=== PATIENT | male | born 1995 | race African-American/Black ===

== ENCOUNTER 2017-04-14 15:21 | Inpatient (IN) ==
--- NOTE | 2017-04-14 16:25 | Emergency Department Note ---
Disposition Clinical Impression: Suicide ideation Depression Qualifiers: Depression Type: major depressive disorder Major depression recurrence: single episode Active/Remission status: currently active Major depression episode severity: unspecified Qualified Code(s): F32.9 - Major depressive disorder, single episode, unspecified Disposition: Admitted As Inpatient Condition: Serious Referrals: Zara Haro MD [Partnered Physician] - Forms: ED Satisfaction Letter Time of Disposition: 19:27 Psych HPI - General Chief Complaint: ED Psychiatric Symptoms Stated Complaint: Anxiety,Depression Time Seen by Provider: 04/14/17 15:56 Source: patient, family Nursing Notes Reviewed: Yes Vital Signs Reviewed: Yes - History of Present Illness HPI Narrative: 21-year-old male complains of symptoms of depression. Patient has insomnia, anorexia, racing thoughts, thoughts of suicide. Patient recently had a breakup with girlfriend since then patient has been feeling more tired withdrawn. Patient states he started drinking alcohol and smoking marijuana every day. Patient states that his family does understand was going on in his life and this makes things difficult. Patient states he has been trying to drown himself in his music. Patient states nothing is helping. Patient does not have a plan for suicide but the thoughts other almost daily. - Related Data Previous Rx's Medication Instructions Recorded Naproxen [Naprosyn] 500 mg PO BID #14 tablet 07/31/16 Allergies Allergy/AdvReac Type Severity Reaction Status Date / Time No Known Allergies Allergy Verified 07/31/16 21:15 All systems ED: reviewed and negative except as stated. Review of Systems: As Per HPI Constitutional: Denies: fever, weakness Eyes: Denies: vision change ENT ED: Denies: congestion Cardiovascular: Denies: chest pain Respiratory: Denies: cough Gastrointestinal: Reports: abdominal pain, constipation Musculoskeletal: Denies: back pain Neurological: Denies: headache Past Medical History - Past Medical History Attestation: Yes The following information was validated with the patient. Source: patient, obtained from family, nursing notes reviewed Medical history: Reports: no medical history Psychiatric history: Reports: ADHD - Social History Smoking Status: Current every day smoker Alcohol use: Reports: occasionally Drug use: Reports: marijuana Physical Exam Vital Signs Temperature 99.2 F 04/14/17 15:43 Pulse Rate 105 04/14/17 15:43 Respiratory Rate 16 04/14/17 15:43 Blood Pressure 137/80 04/14/17 15:43 O2 Sat by Pulse Oximetry 97 04/14/17 15:43 Temperature 99.3 F 04/14/17 15:57 Pulse Rate 95 04/14/17 15:57 Respiratory Rate 20 04/14/17 15:57 Blood Pressure 152/92 04/14/17 15:57 O2 Sat by Pulse Oximetry 98 04/14/17 15:57 Oxygen Delivery Oxygen Delivery Room Air 21-year-old male who is alert and oriented 3 and in no acute distress. Patient became very emotional while describing his problems. Patient is nontoxic appearing. Patient has normal vital signs with exception of his pulse rate which is tachycardiac at 105. Rest the patient vital signs are normal. Patient afebrile. - General Limitations: no limitations General appearance: alert, in no apparent distress - Head Head exam: atraumatic, normocephalic, normal inspection - Eye Eye exam: Present: normal appearance, PERRL, EOMI - ENT ENT exam: normal exam, normal oropharynx, mucous membranes moist - Neck Neck exam: Present: normal inspection, full ROM, trachea midline - Chest Chest inspection: Present: normal inspection, symmetric chest wall rise - Respiratory Respiratory exam: Present: normal lung sounds bilaterally - Cardiovascular Cardiovascular exam: Present: normal rhythm, tachycardia, normal heart sounds - Abdominal Exam Abdominal exam: Present: soft, tenderness, normal bowel sounds. Absent: distention, guarding, rebound, rigidity Abdominal tenderness: Present: LLQ - Extremities Exam Extremities exam: Present: normal inspection, full ROM. Absent: tenderness, pedal edema - Back Exam Back exam: Present: normal inspection, full ROM. Absent: tenderness, CVA tenderness (R), CVA tenderness (L) - Neurological Exam Neurological exam: Present: alert, oriented X3 - Skin Skin exam: Present: warm, dry, intact, normal color Course Vital Signs Temperature 99.2 F 04/14/17 15:43 Pulse Rate 105 04/14/17 15:43 Respiratory Rate 16 04/14/17 15:43 Blood Pressure 137/80 04/14/17 15:43 O2 Sat by Pulse Oximetry 97 04/14/17 15:43 Temperature 98.6 F 04/14/17 17:57 Pulse Rate 73 04/14/17 17:57 Respiratory Rate 23 04/14/17 17:57 Blood Pressure 153/99 04/14/17 17:57 O2 Sat by Pulse Oximetry 97 04/14/17 17:57 Oxygen Delivery Oxygen Delivery Room Air Psych - MDM Narrative Medical decision making narrative: Depression, suicide ideation without a plan. Patient's father called and stated that he found out that his son the patient has been abusing benzodiazepines with his nephew over the past 3 months or so. He states that he stopped abruptly and he thinks that this may be impacting patient's activity. The patient has agreed to workup for his suicide ideation and depression. Patient will be evaluated by 1A once medical clearance is complete. Dr. Dunaway of psychiatry as except the patient for inpatient therapy at 1917 hrs. - Medical Records Medical records reviewed: Yes I reviewed the patient's medical records. Short CBC 04/14/17 Range/Units 16:40 WBC 10.5 (4.3-11.1) K/mcL Hgb 14.2 (12.9-16.9) g/dL Hct 40.5 (37.5-50.1) % Plt Count 214 (140-400) K/mcL Neutrophils # 7.4 (1.6-8.9) K/mcL BMP 04/14/17 Range/Units 16:40 Sodium 137 (136-145) mEq/L Potassium 3.4 L (3.5-5.1) mEq/L Chloride 106 (98-107) mEq/L Carbon Dioxide 25 (23-29) mEq/L BUN 13 (6-20) mg/dL Creatinine 1.07 (0.70-1.30) mg/dL Glucose 100 (70-105) mg/dL Calcium 9.4 (8.6-10.3) mg/dL Liver Function 04/14/17 Range/Units 16:40 Total Bilirubin 0.7 (0.3-1.0) mg/dL Direct Bilirubin 0.1 (0.0-0.2) mg/dL AST 29 (13-39) Units/L ALT 17 (7-52) Units/L Alkaline Phosphatase 37 (34-104) Units/L Albumin 4.6 (3.5-5.7) g/dL Urine 04/14/17 Range/Units 16:25 Urine Color Yellow (Yellow) Urine Clarity Clear (Clear) Urine pH 6.5 (5.0-8.0) pH Units Ur Specific [place] 1.012 (1.010-1.025) Urine Protein Negative (Neg-Trace) mg/dL Urine Glucose (UA) Normal (Normal) mg/dL - Lab Data Lab results reviewed: Yes I reviewed the patient's lab results. Lab results narrative: Short CBC 04/14/17 Range/Units 16:40 WBC 10.5 (4.3-11.1) K/mcL Hgb 14.2 (12.9-16.9) g/dL Hct 40.5 (37.5-50.1) % Plt Count 214 (140-400) K/mcL Neutrophils # 7.4 (1.6-8.9) K/mcL BMP 04/14/17 Range/Units 16:40 Sodium 137 (136-145) mEq/L Potassium 3.4 L (3.5-5.1) mEq/L Chloride 106 (98-107) mEq/L Carbon Dioxide 25 (23-29) mEq/L BUN 13 (6-20) mg/dL Creatinine 1.07 (0.70-1.30) mg/dL Glucose 100 (70-105) mg/dL Calcium 9.4 (8.6-10.3) mg/dL Liver Function 04/14/17 Range/Units 16:40 Total Bilirubin 0.7 (0.3-1.0) mg/dL Direct Bilirubin 0.1 (0.0-0.2) mg/dL AST 29 (13-39) Units/L ALT 17 (7-52) Units/L Alkaline Phosphatase 37 (34-104) Units/L Albumin 4.6 (3.5-5.7) g/dL Urine 04/14/17 Range/Units 16:25 Urine Color Yellow (Yellow) Urine Clarity Clear (Clear) Urine pH 6.5 (5.0-8.0) pH Units Ur Specific [place] 1.012 (1.010-1.025) Urine Protein Negative (Neg-Trace) mg/dL Urine Glucose (UA) Normal (Normal) mg/dL Result diagrams: 04/14/17 16:40 04/14/17 16:40 Lab Results 04/14/17 04/14/17 04/14/17 Range/Units 16:25 16:25 16:40 WBC 10.5 (4.3-11.1) K/mcL RBC 4.46 (4.19-5.50) M/mcL Hgb 14.2 (12.9-16.9) g/dL Hct 40.5 (37.5-50.1) % MCV 90.8 (83.0-100.0) fL MCH 31.8 (28.0-33.3) pg MCHC 35.1 (31.6-35.5) g/dL RDW 12.2 (11.5-14.5) % Plt Count 214 (140-400) K/mcL MPV 10.7 (9.4-12.4) fL Immature Gran % 0.4 (0-4) % Seg Neutrophils % 69.7 % Lymphocytes % 19.4 % Monocytes % 10.2 % Eosinophils % 0.1 % Basophils % 0.2 % Neutrophils # 7.4 (1.6-8.9) K/mcL Lymphocytes # 2.0 (0.6-4.6) K/mcL Monocytes # 1.1 (0.0-1.3) K/mcL Eosinophils # 0.0 (0.0-0.6) K/mcL Basophils # 0.0 (0.0-0.2) K/mcL Sodium (136-145) mEq/L Potassium (3.5-5.1) mEq/L Chloride (98-107) mEq/L Carbon Dioxide (23-29) mEq/L BUN (6-20) mg/dL Creatinine (0.70-1.30) mg/dL Est GFR ( Amer) (> 60) Est GFR (Non-Af Amer) (> 60) BUN/Creatinine Ratio (6-26) Glucose (70-105) mg/dL POC Glucose (58-89) Calculated Osmolality (280-300) Calcium (8.6-10.3) mg/dL Total Bilirubin (0.3-1.0) mg/dL Direct Bilirubin (0.0-0.2) mg/dL Indirect Bilirubin (0.0-1.2) mg/dL AST (13-39) Units/L ALT (7-52) Units/L Alkaline Phosphatase (34-104) Units/L Serum Total Protein (6.4-8.9) g/dL Albumin (3.5-5.7) g/dL Globulin (2.4-3.5) g/dL Albumin/Globulin Ratio (1.1-2.2) TSH (0.340-5.600) mcIU/mL Urine Color Yellow (Yellow) Urine Clarity Clear (Clear) Urine pH 6.5 (5.0-8.0) pH Units Ur Specific [place] 1.012 (1.010-1.025) Urine Protein Negative (Neg-Trace) mg/dL Urine Glucose (UA) Normal (Normal) mg/dL Urine Ketones Trace H (Negative) mg/dL Urine Blood Negative (Negative) Urine Nitrite Negative (Negative) Urine Bilirubin Negative (Negative) Urine Urobilinogen Normal (Normal) mg/dL Ur Leukocyte Esterase Negative (Negative) Salicylates (15.0-30.0) mg/dL Urine Opiates Screen Negative (Mljnzu=588) ng/mL Acetaminophen (10-30) mcg/mL Ur Barbiturates Screen Negative (Fogsxe=270) ng/mL Ur Phencyclidine Scrn Negative (Cutoff=25) ng/mL Ur Amphetamines Screen Negative (Gjtpjj=4141) ng/mL U Benzodiazepines Scrn Negative (Qreiqb=392) ng/mL Urine Cocaine Screen Negative (Cutoff= 300) ng/mL U Marijuana (THC) Screen Positive H (Cutoff = 50) ng/mL Ethyl Alcohol (0-10) mg/dL 04/14/17 04/14/17 04/14/17 Range/Units 16:40 16:40 17:54 WBC (4.3-11.1) K/mcL RBC (4.19-5.50) M/mcL Hgb (12.9-16.9) g/dL Hct (37.5-50.1) % MCV (83.0-100.0) fL MCH (28.0-33.3) pg MCHC (31.6-35.5) g/dL RDW (11.5-14.5) % Plt Count (140-400) K/mcL MPV (9.4-12.4) fL Immature Gran % (0-4) % Seg Neutrophils % % Lymphocytes % % Monocytes % % Eosinophils % % Basophils % % Neutrophils # (1.6-8.9) K/mcL Lymphocytes # (0.6-4.6) K/mcL Monocytes # (0.0-1.3) K/mcL Eosinophils # (0.0-0.6) K/mcL Basophils # (0.0-0.2) K/mcL Sodium 137 (136-145) mEq/L Potassium 3.4 L (3.5-5.1) mEq/L Chloride 106 (98-107) mEq/L Carbon Dioxide 25 (23-29) mEq/L BUN 13 (6-20) mg/dL Creatinine 1.07 (0.70-1.30) mg/dL Est GFR ( Amer) > 60 (> 60) Est GFR (Non-Af Amer) > 60 (> 60) BUN/Creatinine Ratio 12 (6-26) Glucose 100 (70-105) mg/dL POC Glucose 117 H (58-89) Calculated Osmolality 284 (280-300) Calcium 9.4 (8.6-10.3) mg/dL Total Bilirubin 0.7 (0.3-1.0) mg/dL Direct Bilirubin 0.1 (0.0-0.2) mg/dL Indirect Bilirubin 0.6 (0.0-1.2) mg/dL AST 29 (13-39) Units/L ALT 17 (7-52) Units/L Alkaline Phosphatase 37 (34-104) Units/L Serum Total Protein 6.4 (6.4-8.9) g/dL Albumin 4.6 (3.5-5.7) g/dL Globulin 1.8 L (2.4-3.5) g/dL Albumin/Globulin Ratio 2.6 H (1.1-2.2) TSH 0.385 (0.340-5.600) mcIU/mL Urine Color (Yellow) Urine Clarity (Clear) Urine pH (5.0-8.0) pH Units Ur Specific [place] (1.010-1.025) Urine Protein (Neg-Trace) mg/dL Urine Glucose (UA) (Normal) mg/dL Urine Ketones (Negative) mg/dL Urine Blood (Negative) Urine Nitrite (Negative) Urine Bilirubin (Negative) Urine Urobilinogen (Normal) mg/dL Ur Leukocyte Esterase (Negative) Salicylates < 5.0 L (15.0-30.0) mg/dL Urine Opiates Screen (Vcbqpr=781) ng/mL Acetaminophen < 1.0 L (10-30) mcg/mL Ur Barbiturates Screen (Hdqwtr=172) ng/mL Ur Phencyclidine Scrn (Cutoff=25) ng/mL Ur Amphetamines Screen (Qtxvnu=4666) ng/mL U Benzodiazepines Scrn (Gpmuek=233) ng/mL Urine Cocaine Screen (Cutoff= 300) ng/mL U Marijuana (THC) Screen (Cutoff = 50) ng/mL Ethyl Alcohol < 10 (0-10) mg/dL - Radiology Data Radiology results reviewed: Yes I reviewed the patient's radiology results. Psychiatric Medical Clearance - Medical Clearance Checklist Medical History: Strain of left knee (Inactive) No Social History Section defined Current Vitals: Last Vital Signs Temp 98.6 F 04/14/17 17:57 Pulse 73 04/14/17 17:57 Resp 23 04/14/17 17:57 BP 153/99 04/14/17 17:57 Pulse Ox 97 04/14/17 17:57 Psychiatric Lab Panel: Drug Levels and Toxicity 04/14/17 04/14/17 16:25 16:40 Urine Opiates Screen Negative Acetaminophen < 1.0 L Ur Barbiturates Screen Negative Ur Phencyclidine Scrn Negative Ur Amphetamines Screen Negative U Benzodiazepines Scrn Negative Urine Cocaine Screen Negative U Marijuana (THC) Screen Positive H Ethyl Alcohol < 10 Abnormal Labs: Abnormal lab results Potassium 3.4 mEq/L (3.5-5.1) L 04/14/17 16:40 POC Glucose 117 (58-89) H 04/14/17 17:54 Globulin 1.8 g/dL (2.4-3.5) L 04/14/17 16:40 Albumin/Globulin Ratio 2.6 (1.1-2.2) H 04/14/17 16:40 Urine Ketones Trace mg/dL (Negative) H 04/14/17 16:25 Salicylates < 5.0 mg/dL (15.0-30.0) L 04/14/17 16:40 Acetaminophen < 1.0 mcg/mL (10-30) L 04/14/17 16:40 U Marijuana (THC) Screen Positive ng/mL (Cutoff = 50) H 04/14/17 16:25 Statement of Medical Clearance: I have evaluated the patient, reviewed diagnostic information, and certify that the patient's medical condition is sufficiently stable that transfer to the psychiatric unit does not pose a significant risk of deterioration.
--- NOTE | 2017-04-14 16:35 | Emergency Department Note ---
START Narrative - START START: I examined this patient and my medical decision-making was reviewed with the Resident Physician. I agree with the documented findings, disposition and treatment plan as described except to the extent set forth below. recent breakup with GF. upset. withdrawn. depressed. having thoughts of suicide. no plan to kill himself. drinking etoh daily now. using THC and benzo's. psych eval and then 1A eval
[2017-04-14 16:40] LABS: Bilirubin,Urine Negative (Negative); Blood,Urine Negative (Negative); Clarity,Urine Clear (Clear); Color,Urine Yellow (Yellow); Glucose,Urine (UA) Normal (Normal); Ketones,Urine Trace mg/dL (Negative); Leukocyte Esterase,Urine Negative (Negative); Nitrite,Urine Negative (Negative); PH,Urine 6.5 pH Units (5.0-8.0); Protein,Urine Negative (Neg-Trace); Specific Gravity,Urine 1.012 (1.010-1.025); Urobilinogen,Urine Normal (Normal)
[2017-04-14 16:41] LABS: Amphetamine Screen,Urine Negative ng/mL (Cutoff=1000); Barbiturate Screen,Urine Negative ng/mL (Cutoff=200); Benzodiazepines Screen,Urine Negative ng/mL (Cutoff=200); Cannabinoid Screen,Urine Positive ng/mL (Cutoff = 50); Cocaine Screen,Urine Negative ng/mL (Cutoff= 300); Opiate Screen,Urine Negative ng/mL (Cutoff=300); Phencyclidine Screen,Urine Negative ng/mL (Cutoff=25)
[2017-04-14 16:55] LABS: Basophils % 0.2 %; Eosinophils % 0.1 %; Hematocrit 40.5 % (37.5-50.1); Hemoglobin 14.2 g/dL (12.9-16.9); Immature Granulocytes % 0.4 % (0-4); Lymphocytes % 19.4 %; Mean Corpuscular HGB Conc 35.1 g/dL (31.6-35.5); Mean Corpuscular Hemoglobin 31.8 pg (28.0-33.3); Mean Corpuscular Volume 90.8 fL (83.0-100.0); Mean Platelet Volume 10.7 fL (9.4-12.4); Monocytes # 1.1 K/mcL (0.0-1.3); Monocytes % 10.2 %; Neutrophils # 7.4 K/mcL (1.6-8.9); Platelet Count 214 K/mcL (140-400); Red Blood Count 4.46 M/mcL (4.19-5.50); Red Cell Distribution Width 12.2 % (11.5-14.5); Segmented Neutrophils % 69.7 %
[2017-04-14 17:11] LABS: Acetaminophen < 1.0 mcg/mL (10-30); Alanine Aminotransferase 17 Units/L (7-52); Albumin 4.6 g/dL (3.5-5.7); Albumin/Globulin Ratio 2.6 (1.1-2.2); Alkaline Phosphatase 37 Units/L (34-104); Aspartate Amino Transferase 29 Units/L (13-39); BUN/Creatinine Ratio 12 (6-26); Bilirubin,Direct 0.1 mg/dL (0.0-0.2); Bilirubin,Indirect 0.6 mg/dL (0.0-1.2); Bilirubin,Total 0.7 mg/dL (0.3-1.0); Blood Urea Nitrogen 13 mg/dL (6-20); Calcium 9.4 mg/dL (8.6-10.3); Carbon Dioxide 25 mEq/L (23-29); Chloride 106 mEq/L (98-107); Ethanol < 10 mg/dL (0-10); Globulin 1.8 g/dL (2.4-3.5); Glucose 100 mg/dL (70-105); Osmolality,Calculated 284 (280-300); Potassium 3.4 mEq/L (3.5-5.1); Salicylate < 5.0 mg/dL (15.0-30.0); Sodium 137 mEq/L (136-145); Total Protein 6.4 g/dL (6.4-8.9); eGFR For African Americans > 60 (> 60); eGFR For Non-African Americans > 60 (> 60)
[2017-04-14] MEDS ORDERED: *HR* LORazepam 1 MG TABLET PO PRN (19:50)
[2017-04-14] MEDS ORDERED: *HR* LORazepam 2 MG/ML VIAL IM PRN (19:50)
[2017-04-14] MEDS ORDERED: Mag Hydrox/Al Hydrox/Simeth 30 ML UDC PO PRN (19:50)
[2017-04-14] MEDS ORDERED: Haloperidol Lactate 5 MG/ML VIAL IM PRN (19:50)
[2017-04-14] MEDS: traZODone 50 MG TABLET PO PRN (20:37)
[2017-04-14] MEDS: Lithium Carbonate 300 MG CAPSULE PO SCH (20:37)
[2017-04-14] MEDS: hydrOXYzine pamoate 25 MG CAPSULE PO PRN (20:37)
[2017-04-15] MEDS: Lithium Carbonate 300 MG CAPSULE PO SCH ×2 (08:33→20:02)
[2017-04-15] MEDS: Nicotine 7 MG PATCH.TD24 TD SCH (08:33)
--- NOTE | 2017-04-15 13:15 | Psychiatry History & Physical ---
Date of Encounter: 04/15/17 Time of Encounter: 13:06 History of Present Illness Patient Stated Chief Complaint: sonny Medicare Admission Attestation: For traditional Medicare patients the provided hospital inpatient services are reasonable and necessary and in the case of services not specified as inpatient -only under 42 CFR 419.22 (n), that they are appropriately provided as inpatient services in accordance 42 CFR 412.3. For Critical Access Hospital the patient may reasonably be expected to be discharged or transferred to a hospital within 96 hours after admission to the Critical Access Hospital. Admitted From: Home Plans for Post Hospital Care: Home History of Present Illness: Mr. Sanchez is a 21 year old male who presented to the ER secondary to new onset mental health symptoms. According to the ER notes client was depressed with SI due to a fight with his girlfriend. However, when assessed by 1A client was far more manic in appearance with rambling speech and nonsensical thoughts. Today he is clearly presenting as manic. He is hyperactive with racing thoughts and poor sleep. His behaviors are disorganized. He is ripping up the mental health pamphlets on the unit. He is then chewing the ripped up pieces and spitting them out, attaching them to his clothes and eyeglasses or passing them out to staff and his peers. During the staff check-in meeting he continually shoved ripped up pieces of paper under the door. He is constantly at the Purell dispenser and he has repeatedly covered his arms and legs in the insole rasper. His thoughts are equally as disorganized. He has a flight of ideas. He talked about the [place], his job as a fork package lift operator, and working out and feeling sore in the same sentence. This field underwriter spent more time trying to get him to exit the room after speaking with him than actually talking to him. He is pleasant and he has not been aggressive in any way. He denies AH/VH or feelings of paranoia. He is also denying SI/HI at this time. He denies having any physical health problems. He admits to using THC and alcohol. Father was concerned about possible drug use. Client reports he has experimented with Xanax and Cocaine but nothing except THC since October. No signs/symptoms of withdrawal. Tox sceen only positive for THC. Truman has been started. Will also add an antipsychotic. Past Med Surg Social Fam HX - Past Medical History Medical history: no medical history - Past Psychiatric History Psychiatric history: Reports: no psych history Family psychiatric history: Unknown Family History of Suicide: Unknown - Past Surgical History Surgical History: no surgical history - Social History Smoking Status: Current some day smoker Smokeless Tobacco Status: No Alcohol use: occasionally Drug use: marijuana - Family History Mother History Unknown: Yes Adopted: Floral: Kadi Brown Age: 38 Family Member Ethnicity: Non- Living Status: Still Living Hx Family Cardiac Disorders: No Hx Family Respiratory Disorders: No Hx Family Cancer: No Hx Family GI Disorders: No Hx Family Genitourinary Disorders: No Hx Family Endocrine Disorder: No Hx Family Musculoskeletal Disorders: No Hx Family Neuromuscular Disorders: No Hx Family Neurologic Disorders: No Hx Family HEENT Disorders: No Hx Family Autoimmune Disorders: No Hx Family Reproductive Disorders: No Hx Family Psychosocial Disorders: No Hx Family Medical Disorders: No Medications & Allergies Cetirizine HCl [Zyrtec] 10 mg PO DAILY 04/15/17 [History] Dextroamphetamine/Amphetamine [Adderall Xr 20 mg Capsule] 20 mg PO DAILY [History] Fluticasone Propionate Nasal [Flonase] 50 mcg NS DAILY 04/15/17 [History] Pantoprazole Sodium [Protonix] 40 mg PO DAILY 04/15/17 [History] 3 Allergy/AdvReac Type Severity Reaction Status Date / Time No Known Allergies Allergy Verified 07/31/16 21:15 Review of Systems Constitutional: Denies: fever, chills, weakness, weight change Eyes: Denies: eye pain, vision change Ears, Nose, Throat: Denies: ear pain, throat pain, dental pain, hearing loss, congestion Cardiovascular: Denies: chest pain, palpitations, dyspnea on exertion Respiratory: Denies: cough, dyspnea, wheezes Gastrointestinal: Denies: abdominal pain, nausea, vomiting, diarrhea, constipation Genitourinary male: Denies: urgency, dysuria, frequency, genital lesions Genitourinary female: Denies: urgency, dysuria, frequency, abnormal menses, dyspareunia Musculoskeletal: Denies: joint swelling, joint pain Integumentary: Denies: rash, lesions, pruritus Neurological: Denies: headache, weakness, numbness, memory loss Endocrine: Denies: fatigue, heat or cold intolerance Hematologic/Lymphatic: Denies: easy bruising, lymphadenopathy Allergic/Immunologic: Denies: urticaria, itchy eyes Mental Status Exam Patient orientation: Yes Person Level of alertness: Alert Patient appearance: Appropriate Behavior: restless Psychomotor activity: Increased Eye contact: Maintains Eye Contact Mood description: Elevated Affect description: congruent with mood Speech pattern: Normal rate, Normal rhythm, Normal tone Speech volume: Normal Thought process: Loose Associations, Flight of Ideas Thought content: No Suicidal ideation, No Homicidal ideation, Yes Preoccupation Perceptual disturbances: No Auditory hallucinations, No Visual hallucinations Attention span: Unable to Focus, Unable to Sustain Attention Memory description: Grossly Intact Patient reliability: Not Reliable Historian Intelligence estimate: Average Judgment: Limited Insight: Minimal Exam - HEENT Head exam IM: Present: atraumatic Eye exam IM: Present: EOMI - Neurological Neurological exam IM: Present: alert, oriented X3 - Respiratory Respiratory exam IM: Present: CTAB - GI/Abdominal GI/Abdominal exam IM: Present: normal bowel sounds - Extremities Extremities exam IM: Present: full ROM - Skin Skin exam IM: Present: normal color Results - Vital Signs Vital signs: Temp Pulse Resp BP Pulse Ox 97.8 F 84 16 129/85 97 04/15/17 08:08 04/15/17 08:08 04/15/17 08:08 04/15/17 08:08 04/14/17 17:57 - Labs Labs: Laboratory Last Values WBC 10.5 K/mcL (4.3-11.1) 04/14/17 16:40 RBC 4.46 M/mcL (4.19-5.50) 04/14/17 16:40 Hgb 14.2 g/dL (12.9-16.9) 04/14/17 16:40 Hct 40.5 % (37.5-50.1) 04/14/17 16:40 MCV 90.8 fL (83.0-100.0) 04/14/17 16:40 MCH 31.8 pg (28.0-33.3) 04/14/17 16:40 MCHC 35.1 g/dL (31.6-35.5) 04/14/17 16:40 RDW 12.2 % (11.5-14.5) 04/14/17 16:40 Plt Count 214 K/mcL (140-400) 04/14/17 16:40 MPV 10.7 fL (9.4-12.4) 04/14/17 16:40 Immature Gran % 0.4 % (0-4) 04/14/17 16:40 Seg Neutrophils % 69.7 % 04/14/17 16:40 Lymphocytes % 19.4 % 04/14/17 16:40 Monocytes % 10.2 % 04/14/17 16:40 Eosinophils % 0.1 % 04/14/17 16:40 Basophils % 0.2 % 04/14/17 16:40 Neutrophils # 7.4 K/mcL (1.6-8.9) 04/14/17 16:40 Lymphocytes # 2.0 K/mcL (0.6-4.6) 04/14/17 16:40 Monocytes # 1.1 K/mcL (0.0-1.3) 04/14/17 16:40 Eosinophils # 0.0 K/mcL (0.0-0.6) 04/14/17 16:40 Basophils # 0.0 K/mcL (0.0-0.2) 04/14/17 16:40 Sodium 137 mEq/L (136-145) 04/14/17 16:40 Potassium 3.4 mEq/L (3.5-5.1) L 04/14/17 16:40 Chloride 106 mEq/L (98-107) 04/14/17 16:40 Carbon Dioxide 25 mEq/L (23-29) 04/14/17 16:40 BUN 13 mg/dL (6-20) 04/14/17 16:40 Creatinine 1.07 mg/dL (0.70-1.30) 04/14/17 16:40 Est GFR ( Amer) > 60 (> 60) 04/14/17 16:40 Est GFR (Non-Af Amer) > 60 (> 60) 04/14/17 16:40 BUN/Creatinine Ratio 12 (6-26) 04/14/17 16:40 Glucose 100 mg/dL (70-105) 04/14/17 16:40 POC Glucose 117 (58-89) H 04/14/17 17:54 Calculated Osmolality 284 (280-300) 04/14/17 16:40 Calcium 9.4 mg/dL (8.6-10.3) 04/14/17 16:40 Total Bilirubin 0.7 mg/dL (0.3-1.0) 04/14/17 16:40 Direct Bilirubin 0.1 mg/dL (0.0-0.2) 04/14/17 16:40 Indirect Bilirubin 0.6 mg/dL (0.0-1.2) 04/14/17 16:40 AST 29 Units/L (13-39) 04/14/17 16:40 ALT 17 Units/L (7-52) 04/14/17 16:40 Alkaline Phosphatase 37 Units/L (34-104) 04/14/17 16:40 Serum Total Protein 6.4 g/dL (6.4-8.9) 04/14/17 16:40 Albumin 4.6 g/dL (3.5-5.7) 04/14/17 16:40 Globulin 1.8 g/dL (2.4-3.5) L 04/14/17 16:40 Albumin/Globulin Ratio 2.6 (1.1-2.2) H 04/14/17 16:40 TSH 0.385 mcIU/mL (0.340-5.600) 04/14/17 16:40 Urine Color Yellow (Yellow) 04/14/17 16:25 Urine Clarity Clear (Clear) 04/14/17 16:25 Urine pH 6.5 pH Units (5.0-8.0) 04/14/17 16:25 Ur Specific [place] 1.012 (1.010-1.025) 04/14/17 16:25 Urine Protein Negative mg/dL (Neg-Trace) 04/14/17 16:25 Urine Glucose (UA) Normal mg/dL (Normal) 04/14/17 16:25 Urine Ketones Trace mg/dL (Negative) H 04/14/17 16:25 Urine Blood Negative (Negative) 04/14/17 16:25 Urine Nitrite Negative (Negative) 04/14/17 16:25 Urine Bilirubin Negative (Negative) 04/14/17 16:25 Urine Urobilinogen Normal mg/dL (Normal) 04/14/17 16:25 Ur Leukocyte Esterase Negative (Negative) 04/14/17 16:25 Salicylates < 5.0 mg/dL (15.0-30.0) L 04/14/17 16:40 Urine Opiates Screen Negative ng/mL (Eklnhj=445) 04/14/17 16:25 Acetaminophen < 1.0 mcg/mL (10-30) L 04/14/17 16:40 Ur Barbiturates Screen Negative ng/mL (Sjogoh=903) 04/14/17 16:25 Ur Phencyclidine Scrn Negative ng/mL (Cutoff=25) 04/14/17 16:25 Ur Amphetamines Screen Negative ng/mL (Oopead=8272) 04/14/17 16:25 U Benzodiazepines Scrn Negative ng/mL (Ifqdje=172) 04/14/17 16:25 Urine Cocaine Screen Negative ng/mL (Cutoff= 300) 04/14/17 16:25 U Marijuana (THC) Screen Positive ng/mL (Cutoff = 50) H 04/14/17 16:25 Ethyl Alcohol < 10 mg/dL (0-10) 04/14/17 16:40 Assessment and Plan (1) Bipolar affective disorder, current episode manic with psychotic symptoms Current visit: Yes Status: Acute Plan: Admit inpatient for safety and stabilization, Close observation, Suicide Precautions per unit protocol, Encourage participation in unit milieu, Group Therapy, Monitor sleep, Monitor appetite Risks, benefits, side effects, alternatives discussed w/pt: Yes Patient agreeable to treatment: Yes Plans for Post Hospital Care: Home Estimated Length of Stay (Days): 4
[2017-04-15] MEDS: hydrOXYzine pamoate 25 MG CAPSULE PO PRN (20:02)
[2017-04-15] MEDS: traZODone 50 MG TABLET PO PRN (20:03)
[2017-04-15] MEDS: risperiDONE 1 MG TABLET PO SCH (20:03)
--- NOTE | 2017-04-15 20:04 | Electrocardiograph Report ---
[place] [id number] Test Date: 2017-04-14 Pat Name: Ant Sanchez Department: 104 Room: [facility] Gender: M Binding Folder Machine: : [id number] Requested By: David Lynn Order Number: [id number] Reading MD: Johnson Morillo MD Measurements Intervals [place] Rate: 79 P: 3 MO: 157 QRS: 70 QRSD: 110 T: 62 QT: 359 QTc: 394 Interpretive Statements SINUS RHYTHM BASELINE ARTIFACT Electronically Signed On 04-15-2017 20:02:34 EST by Johnson Morillo MD
[2017-04-15] MEDS: Acetaminophen 325 MG TABLET PO PRN (22:34)
[2017-04-16] MEDS: Acetaminophen 325 MG TABLET PO PRN (06:30)
[2017-04-16] MEDS: hydrOXYzine pamoate 25 MG CAPSULE PO PRN (06:31)
[2017-04-16] MEDS: Nicotine 7 MG PATCH.TD24 TD SCH (08:31)
[2017-04-16] MEDS: Lithium Carbonate 300 MG CAPSULE PO SCH ×2 (08:32→21:48)
[2017-04-16] MEDS: risperiDONE 1 MG TABLET PO SCH ×2 (08:32→21:48)
--- NOTE | 2017-04-16 11:24 | Psychiatry Progress Note ---
Date of Encounter: 04/16/17 Time of Encounter: 11:18 Subjective Interval history: Slowing down a little but still manic. Able to sleep some last night. Able to be interrupted more today but speech is still pressured at times. Continues to rhyme words. Continues to have a flight of ideas but showing some increased ability to stay on topic for brief periods. Focused on having ADHD. Discussed Bipolar diagnosis. Client seems to agree with Bipolar diagnosis but is more fixated on having ADHD. Multiple visitors last night. This overstimulated him but he does have supports. Pamphlets had to be removed from public areas because he kept ripping them up. Had a stack of papers when he met with this life insurance underwriter today. He talked about tearing them up but did not and seemed to have better self control. Review of Systems Constitutional: Denies: fever, chills, weakness, weight change Eyes: Denies: eye pain, vision change Ears, Nose, Throat: Denies: ear pain, throat pain, dental pain, hearing loss, congestion Cardiovascular: Denies: chest pain, palpitations, dyspnea on exertion Respiratory: Denies: cough, dyspnea, wheezes Gastrointestinal: Denies: abdominal pain, nausea, vomiting, diarrhea, constipation Musculoskeletal: Denies: joint swelling, joint pain Neurological: Denies: headache, weakness, numbness, memory loss Objective: Exam Patient orientation: Yes Person, Yes Time, Yes Place Level of alertness: Alert Patient appearance: Appropriate, Well Groomed Behavior: cooperative Psychomotor activity: Normal Eye contact: Maintains Eye Contact Mood description: Elevated Affect description: congruent with mood Speech pattern: Pressured Speech volume: Normal Thought process: Flight of Ideas Thought content: No Suicidal ideation, No Homicidal ideation, Yes Preoccupation Perceptual disturbances: No Auditory hallucinations, No Visual hallucinations Judgment: Limited Insight: Minimal Results - Vital Signs Vital Signs: Temp Pulse Resp BP Pulse Ox 97.8 F 80 18 141/87 97 04/16/17 07:52 04/16/17 07:52 04/16/17 07:52 04/16/17 07:52 04/14/17 17:57 Assessment and Plan (1) Bipolar affective disorder, current episode manic with psychotic symptoms Current visit: Yes Status: Acute Plan: Continue hospitalization, Close observation, Suicide Precautions per unit protocol, Encourage participation in unit milieu, Group Therapy, Monitor sleep, Monitor appetite Risks, benefits, side effects, alternatives discussed w/pt: Yes Patient agreeable to treatment: Yes Consult Discharge Plan - Plan Referrals: [facility] [Outside] - 04/22/17 9:00 am (The above appointment is with Kymberly Voss, for mental health counseling services. Please arrive 10 minutes early to complete the check-in process. Please bring your insurance card and photo ID. If you are unable to keep this appointment, 24 hour business notice of cancellation is expected. If you miss your new patient appointment without providing appropriate notice, you cannot be re-scheduled. The above appointment(s) reflects first availability. You may contact the office regularly to check for cancellations that may allow you to be seen sooner. The [facility] is the 1st building behind [facility] in [place], [place]. Please do not use GPS or mapping apps to locate the office, as they will take you to the wrong location. ) [facility] [Outside] - 05/17/17 10:00 am (The above appointment is with Dr. Noni Page, for mental health counseling services. You will also see , for outpatient psychiatric assessment and medication management services on. Please arrive 10 minutes early to complete the check- in process. Please bring your insurance card (or HCAP award letter) and photo ID. If you are unable to keep this appointment, 24 hour business notice of cancellation is expected. If you miss your new patient appointment without providing appropriate notice, you cannot be re-scheduled. The above appointment (s) reflects first availability. You may contact the office regularly to check for cancellations that may allow you to be seen sooner. The [facility] is the 1st building behind [facility] in [place], [place]. Please do not use GPS or mapping apps to locate the office, as they will take you to the wrong location. )
[2017-04-16] MEDS: MOM Conc 10 ML UD.LIQ PO PRN (23:34)
[2017-04-17] MEDS: Lithium Carbonate 300 MG CAPSULE PO SCH ×2 (08:51→21:02)
[2017-04-17] MEDS: risperiDONE 1 MG TABLET PO SCH ×2 (08:51→21:01)
[2017-04-17] MEDS: Nicotine 7 MG PATCH.TD24 TD SCH (09:00)
--- NOTE | 2017-04-17 10:35 | Psychiatry Progress Note ---
Date of Encounter: 04/17/17 Time of Encounter: 10:20 Subjective Interval history: Had a rough day yesterday but looking a little better this morning. Yesterday he was stripping and demanding to leave. Given emergency PO prns. He did refuse his scheduled hs meds last night but agreed to take them this morning. Calmer and more redirectable this morning. Thoughts are still tangential but less all over the place. Less rhyming and word associations. Less bizarre behaviors like flossing teeth with hair. Still walks around with piles of paper that he wants to go through one piece at a time with staff but he is no longer ripping the paper into little pieces and attaching the ripped up words to his clothes and glasses. Sill manic but improving. Episode likely precipitated by lack of sleep. He started a third shift job and was taking his ADHD stimulants to stay awake. Will take time to fully stabilize. Review of Systems Constitutional: Denies: fever, chills, weakness, weight change Eyes: Denies: eye pain, vision change Ears, Nose, Throat: Denies: ear pain, throat pain, dental pain, hearing loss, congestion Cardiovascular: Denies: chest pain, palpitations, dyspnea on exertion Respiratory: Denies: cough, dyspnea, wheezes Gastrointestinal: Denies: abdominal pain, nausea, vomiting, diarrhea, constipation Musculoskeletal: Denies: joint swelling, joint pain Neurological: Denies: headache, weakness, numbness, memory loss Objective: Exam Patient orientation: Yes Person, Yes Time, Yes Place Level of alertness: Alert Patient appearance: Appropriate, Well Groomed Behavior: cooperative Psychomotor activity: Normal Eye contact: Maintains Eye Contact Mood description: Elevated Affect description: congruent with mood Speech pattern: Normal rate, Normal rhythm, Normal tone Speech volume: Normal Thought process: Circumstantial, Tangential Thought content: No Suicidal ideation, No Homicidal ideation, No Overt delusions Perceptual disturbances: No Auditory hallucinations, No Visual hallucinations Judgment: Limited Insight: Partial Results - Vital Signs Vital Signs: Temp Pulse Resp BP Pulse Ox 99 F 83 18 133/94 97 04/17/17 08:15 04/17/17 08:15 04/17/17 08:15 04/17/17 08:15 04/14/17 17:57 Assessment and Plan (1) Bipolar affective disorder, current episode manic with psychotic symptoms Current visit: Yes Status: Acute Plan: Continue hospitalization, Close observation, Suicide Precautions per unit protocol, Encourage participation in unit milieu, Group Therapy, Monitor sleep, Monitor appetite Risks, benefits, side effects, alternatives discussed w/pt: Yes Patient agreeable to treatment: Yes Consult Discharge Plan - Plan Referrals: [facility] [Outside] - 04/22/17 9:00 am (The above appointment is with Kymberly Voss, for mental health counseling services. Please arrive 10 minutes early to complete the check-in process. Please bring your insurance card and photo ID. If you are unable to keep this appointment, 24 hour business notice of cancellation is expected. If you miss your new patient appointment without providing appropriate notice, you cannot be re-scheduled. The above appointment(s) reflects first availability. You may contact the office regularly to check for cancellations that may allow you to be seen sooner. The [facility] is the 1st building behind [facility] in [place], [place]. Please do not use GPS or mapping apps to locate the office, as they will take you to the wrong location. ) [facility] [Outside] - 05/17/17 10:00 am (The above appointment is with Dr. Noni Page, for mental health counseling services. You will also see , for outpatient psychiatric assessment and medication management services on. Please arrive 10 minutes early to complete the check- in process. Please bring your insurance card (or HCAP award letter) and photo ID. If you are unable to keep this appointment, 24 hour business notice of cancellation is expected. If you miss your new patient appointment without providing appropriate notice, you cannot be re-scheduled. The above appointment (s) reflects first availability. You may contact the office regularly to check for cancellations that may allow you to be seen sooner. The [facility] is the 1st building behind [facility] in [place], [place]. Please do not use GPS or mapping apps to locate the office, as they will take you to the wrong location. )
[2017-04-17] MEDS: Acetaminophen 325 MG TABLET PO PRN ×2 (15:45→21:53)
[2017-04-17] MEDS: traZODone 50 MG TABLET PO PRN (21:02)
[2017-04-18] MEDS: Lithium Carbonate 300 MG CAPSULE PO SCH ×2 (08:58→20:35)
[2017-04-18] MEDS: risperiDONE 1 MG TABLET PO SCH ×2 (08:59→20:36)
[2017-04-18] MEDS: Nicotine 7 MG PATCH.TD24 TD SCH (08:59)
--- NOTE | 2017-04-18 11:42 | Psychiatry Progress Note ---
Date of Encounter: 04/18/17 Time of Encounter: 11:37 Subjective Interval history: Small improvements. Sleeping better. More redirectable. Bizarre behaviors have lessened. Thoughts are still disorganized but improving. Client recognizes he is improving as well. States his thoughts are slowing down and he feels less scattered. He feels he is thinking is clear now but he is receptive to the fact that others are still aware of some psychosis. Will increase Risperdal dose one more time. Will also check [place] level. [place] may not be at steady state yet but want to ensure a level is drawn prior to discharge. Client wants to leave but he is aware staff feel he needs to stay through the New Year. Still has a lot of creative energy. Coloring and writing poetry. Also struggling to piece things together. Has asked repeatedly how he came to be admitted here. Memory very unclear for events that led to hospitalization. Review of Systems Constitutional: Denies: fever, chills, weakness, weight change Eyes: Denies: eye pain, vision change Ears, Nose, Throat: Denies: ear pain, throat pain, dental pain, hearing loss, congestion Cardiovascular: Denies: chest pain, palpitations, dyspnea on exertion Respiratory: Denies: cough, dyspnea, wheezes Gastrointestinal: Denies: abdominal pain, nausea, vomiting, diarrhea, constipation Musculoskeletal: Denies: joint swelling, joint pain Neurological: Denies: headache, weakness, numbness, memory loss Objective: Exam Patient orientation: Yes Person, Yes Time, Yes Place Level of alertness: Alert Patient appearance: Appropriate, Well Groomed Behavior: calm, cooperative Psychomotor activity: Normal Eye contact: Maintains Eye Contact Mood description: Elevated Affect description: congruent with mood Speech pattern: Normal rate, Normal rhythm, Normal tone Speech volume: Normal Thought process: Circumstantial, Tangential Thought content: No Suicidal ideation, No Homicidal ideation, No Overt delusions Perceptual disturbances: No Auditory hallucinations, No Visual hallucinations Judgment: Limited Insight: Partial Results - Vital Signs Vital Signs: Temp Pulse Resp BP Pulse Ox 98.2 F 96 16 120/86 97 04/18/17 09:00 04/18/17 09:00 04/18/17 09:00 04/18/17 09:00 04/14/17 17:57 Assessment and Plan (1) Bipolar affective disorder, current episode manic with psychotic symptoms Current visit: Yes Status: Acute Plan: Continue hospitalization, Close observation, Suicide Precautions per unit protocol, Encourage participation in unit milieu, Group Therapy, Monitor sleep, Monitor appetite Risks, benefits, side effects, alternatives discussed w/pt: Yes Patient agreeable to treatment: Yes Consult Discharge Plan - Plan Referrals: [facility] [Outside] - 04/22/17 9:00 am (The above appointment is with Kymberly Voss, for mental health counseling services. Please arrive 10 minutes early to complete the check-in process. Please bring your insurance card and photo ID. If you are unable to keep this appointment, 24 hour business notice of cancellation is expected. If you miss your new patient appointment without providing appropriate notice, you cannot be re-scheduled. The above appointment(s) reflects first availability. You may contact the office regularly to check for cancellations that may allow you to be seen sooner. The [facility] is the 1st building behind [facility] in [place], [place]. Please do not use GPS or mapping apps to locate the office, as they will take you to the wrong location. ) [facility] [Outside] - 05/17/17 10:00 am (The above appointment is with Dr. Noni Page, for mental health counseling services. You will also see , for outpatient psychiatric assessment and medication management services on. Please arrive 10 minutes early to complete the check- in process. Please bring your insurance card (or HCAP award letter) and photo ID. If you are unable to keep this appointment, 24 hour business notice of cancellation is expected. If you miss your new patient appointment without providing appropriate notice, you cannot be re-scheduled. The above appointment (s) reflects first availability. You may contact the office regularly to check for cancellations that may allow you to be seen sooner. The [facility] is the 1st building behind [facility] in [place], [place]. Please do not use GPS or mapping apps to locate the office, as they will take you to the wrong location. )
[2017-04-18] MEDS: traZODone 50 MG TABLET PO PRN (22:08)
[2017-04-19] MEDS: Lithium Carbonate 300 MG CAPSULE PO SCH ×2 (08:24→21:01)
[2017-04-19] MEDS: risperiDONE 1 MG TABLET PO SCH ×2 (08:24→21:00)
[2017-04-19] MEDS: Nicotine 7 MG PATCH.TD24 TD SCH (08:25)
[2017-04-19] MEDS: Acetaminophen 325 MG TABLET PO PRN (10:12)
--- NOTE | 2017-04-19 10:34 | Psychiatry Progress Note ---
Date of Encounter: 04/19/17 Time of Encounter: 10:30 Subjective Interval history: Still has some manic behaviors/thoughts but much better. More organized. Sleeping well. Still getting twenty plus visitors at a time which is overstimulating him in the evenings. Staff have requested that this stop. Probably looks better in the mornings than in the evenings but definitely improving overall. Med compliant. If he continues on medications and agrees to outpatient follow-up can likely be maintained at home. Will look at discharge tomorrow. [place] level still pending. Review of Systems Constitutional: Denies: fever, chills, weakness, weight change Eyes: Denies: eye pain, vision change Ears, Nose, Throat: Denies: ear pain, throat pain, dental pain, hearing loss, congestion Cardiovascular: Denies: chest pain, palpitations, dyspnea on exertion Respiratory: Denies: cough, dyspnea, wheezes Gastrointestinal: Denies: abdominal pain, nausea, vomiting, diarrhea, constipation Musculoskeletal: Denies: joint swelling, joint pain Neurological: Denies: headache, weakness, numbness, memory loss Objective: Exam Patient orientation: Yes Person, Yes Time, Yes Place Level of alertness: Alert Patient appearance: Appropriate, Well Groomed Behavior: calm, cooperative Psychomotor activity: Normal Eye contact: Maintains Eye Contact Mood description: Euthymic/stable Affect description: congruent with mood, full range Speech pattern: Normal rate, Normal rhythm, Normal tone Speech volume: Normal Thought process: Circumstantial, Tangential Thought content: No Suicidal ideation, No Homicidal ideation, No Overt delusions Perceptual disturbances: No Auditory hallucinations, No Visual hallucinations Judgment: Fair Insight: Partial Results - Vital Signs Vital Signs: Temp Pulse Resp BP Pulse Ox 97.5 F L 75 18 129/89 97 04/19/17 09:00 04/19/17 09:00 04/19/17 09:00 04/19/17 09:00 04/14/17 17:57 - Drug Levels and Toxicology Drug Levels and Toxicology: Drug Levels and Toxicity 04/18/17 12:24 [place] 0.4 L - Labs Labs: Laboratory Results - last 24 hr 04/18/17 12:24 [place] 0.4 L Assessment and Plan (1) Bipolar affective disorder, current episode manic with psychotic symptoms Current visit: Yes Status: Acute Plan: Continue hospitalization, Close observation, Suicide Precautions per unit protocol, Encourage participation in unit milieu, Group Therapy, Monitor sleep, Monitor appetite Risks, benefits, side effects, alternatives discussed w/pt: Yes Patient agreeable to treatment: Yes Consult Discharge Plan - Plan Referrals: [facility] [Outside] - 04/22/17 9:00 am (The above appointment is with Kymberly Voss, for mental health counseling services. Please arrive 10 minutes early to complete the check-in process. Please bring your insurance card and photo ID. If you are unable to keep this appointment, 24 hour business notice of cancellation is expected. If you miss your new patient appointment without providing appropriate notice, you cannot be re-scheduled. The above appointment(s) reflects first availability. You may contact the office regularly to check for cancellations that may allow you to be seen sooner. The [facility] is the 1st building behind [facility] in [place], [place]. Please do not use GPS or mapping apps to locate the office, as they will take you to the wrong location. ) [facility] [Outside] - 05/17/17 10:00 am (The above appointment is with Dr. Noni Page, for mental health counseling services. You will also see , for outpatient psychiatric assessment and medication management services on. Please arrive 10 minutes early to complete the check- in process. Please bring your insurance card (or HCAP award letter) and photo ID. If you are unable to keep this appointment, 24 hour business notice of cancellation is expected. If you miss your new patient appointment without providing appropriate notice, you cannot be re-scheduled. The above appointment (s) reflects first availability. You may contact the office regularly to check for cancellations that may allow you to be seen sooner. The [facility] is the [facility]st [facility] in [place], [place]. Please do not use GPS or mapping apps to locate the office, as they will take you to the wrong location. )
[2017-04-19] MEDS: MOM Conc 10 ML UD.LIQ PO PRN (15:12)
[2017-04-20] MEDS: Nicotine 7 MG PATCH.TD24 TD SCH (08:55)
[2017-04-20] MEDS: risperiDONE 1 MG TABLET PO SCH ×2 (08:56→21:16)
[2017-04-20] MEDS: Lithium Carbonate 300 MG CAPSULE PO SCH ×2 (08:56→21:16)
--- NOTE | 2017-04-20 13:51 | Psychiatry Progress Note ---
Date of Encounter: 04/20/17 Time of Encounter: 13:20 Subjective Interval history: Patient tells me "I am good today. I have been taken a couple naps and eating better". He states that overall he is feeling better; more rested and eating better so he believes he could go home safely soon. He tells me that the whole reason he was admitted was because his girlfriend was keeping him awake. I asked him about the diagnosis of bipolar disorder and he told me that he is not think he has this diagnosis. He just attributes all the issues to his ex- girlfriend. I asked him if he ever talk to him his family about any members that had bipolar, and he said he was not sure. He denies any auditory or visual hallucinations he denies any suicidal or homicidal ideation. He tells me that he did go couple days without sleep and no need for sleep. He also told me that the was having a hard time staying focused, but attributes this to ADHD. I explained and sometimes children are diagnosed with ADHD, but might actually be bipolar disorder. States that he wanted to know more about bipolar and I explained to him. He is going to talk to his parents tonight see there is any family history of mental health problems such as bipolar, schizoaffective or schizophrenia. He denies any side effects of his medications. He does not correlate the fact that he being on the medications that his mood is more stabilized and he is sleeping better. He is agreeable to getting lab work completed and potentially being discharged tomorrow as long as his mood remains stable and the lab work shows lithium level present as well as good renal function. Objective: Exam Patient orientation: Yes Person, Yes Place, Yes Circumstance Level of alertness: Alert, Follows commands Patient appearance: Appropriate, Well Groomed Behavior: calm, cooperative Psychomotor activity: Normal Eye contact: Maintains Eye Contact Mood description: Euthymic/stable Affect description: congruent with mood Speech pattern: Normal rate, Normal rhythm, Normal tone Speech volume: Normal Thought process: Intact, Linear, Goal Oriented Thought content: Yes Intact Judgment: Fair Insight: Partial Results - Vital Signs Vital Signs: Temp Pulse Resp BP Pulse Ox 97.6 F 62 16 136/80 97 04/20/17 09:00 04/20/17 09:00 04/20/17 09:00 04/20/17 09:00 04/14/17 17:57 Assessment and Plan (1) Bipolar affective disorder, current episode manic with psychotic symptoms Current visit: Yes Status: Acute Plan: Continue hospitalization, Encourage participation in unit milieu, Group Therapy, Monitor sleep Risks, benefits, side effects, alternatives discussed w /pt: Yes Patient agreeable to treatment: Yes (Needs further lab work prior to discharge) Consult Discharge Plan - Plan Additional Instructions: Patient is going to talk to his parents and find out if other family members have a history of bipolar disorder. He has partial insight into this, but is not convinced. I discussed with him the importance of medication compliance and follow up with Mental Health once he is discharged. Referrals: [facility] [Outside] - 04/22/17 9:00 am (The above appointment is with Kymberly Voss, for mental health counseling services. Please arrive 10 minutes early to complete the check-in process. Please bring your insurance card and photo ID. If you are unable to keep this appointment, 24 hour business notice of cancellation is expected. If you miss your new patient appointment without providing appropriate notice, you cannot be re-scheduled. The above appointment(s) reflects first availability. You may contact the office regularly to check for cancellations that may allow you to be seen sooner. The [facility] is the 1st building behind [facility] in [place], [place]. Please do not use GPS or mapping apps to locate the office, as they will take you to the wrong location. ) [facility] [Outside] - 05/17/17 10:00 am (The above appointment is with Dr. Noni Page, for mental health counseling services. You will also see , for outpatient psychiatric assessment and medication management services on. Please arrive 10 minutes early to complete the check- in process. Please bring your insurance card (or HCAP award letter) and photo ID. If you are unable to keep this appointment, 24 hour business notice of cancellation is expected. If you miss your new patient appointment without providing appropriate notice, you cannot be re-scheduled. The above appointment (s) reflects first availability. You may contact the office regularly to check for cancellations that may allow you to be seen sooner. The [facility] is the 1st building behind [facility] in [place], [place]. Please do not use GPS or mapping apps to locate the office, as they will take you to the wrong location. )
[2017-04-21] MEDS: risperiDONE 1 MG TABLET PO SCH (09:08)
[2017-04-21] MEDS: Lithium Carbonate 300 MG CAPSULE PO SCH (09:09)
[2017-04-21] MEDS: Nicotine 7 MG PATCH.TD24 TD SCH (09:09)
[2017-04-21 09:47] LABS: BUN/Creatinine Ratio 15 (6-26); Blood Urea Nitrogen 15 mg/dL (6-20); Calcium 9.3 mg/dL (8.6-10.3); Carbon Dioxide 24 mEq/L (23-29); Chloride 108 mEq/L (98-107); Glucose 96 mg/dL (70-105); Osmolality,Calculated 287 (280-300); Potassium 3.9 mEq/L (3.5-5.1); Sodium 138 mEq/L (136-145); eGFR For African Americans > 60 (> 60); eGFR For Non-African Americans > 60 (> 60)
--- NOTE | 2017-04-21 11:07 | Discharge Summary ---
Date of Encounter: 04/21/17 Time of Encounter: 11:00 Diagnosis - Discharge Diagnosis (1) Bipolar affective disorder, current episode manic with psychotic symptoms Status: Acute Medications - Discharge Medications Prescriptions: [facility] Carbonate 300 mg PO BID 30 Days #60 capsule risperiDONE [Risperdal] 2 mg PO QAM AND QHS 30 Days #60 tablet traZODone [TraZODone] 50 mg PO HS PRN 30 Days #30 tablet PRN Reason: Insomnia Cetirizine HCl [Zyrtec] 10 mg PO DAILY 04/15/17 [History] Dextroamphetamine/Amphetamine [Adderall Xr 20 mg Capsule] 20 mg PO DAILY [History] Fluticasone Propionate Nasal [Flonase] 50 mcg NS DAILY 04/15/17 [History] Pantoprazole Sodium [Protonix] 40 mg PO DAILY 04/15/17 [History] [facility] Carbonate 300 mg PO BID capsule 04/21/17 [Rx] [facility] Carbonate 300 mg PO BID 30 Days #60 capsule 04/21/17 [Rx] risperiDONE [RisperDAL] 2 mg PO DAILY tablet 04/21/17 [Rx] risperiDONE [RisperDAL] 2 mg PO HS tablet 04/21/17 [Rx] risperiDONE [Risperdal] 2 mg PO QAM AND QHS 30 Days #60 tablet 04/21/17 [Rx] traZODone [TraZODone] 50 mg PO HS PRN 30 Days #30 tablet 04/21/17 [Rx] 3 Allergy/AdvReac Type Severity Reaction Status Date / Time No Known Allergies Allergy Verified 07/31/16 21:15 Results Procedures and tests throughout hospitalization: Completed Lab Orders Category Date Time Status Chem 7 [Basic Metabolic Panel] Routine Lab 04/21/17 08:54 Completed [facility] Routine Lab 04/21/17 08:54 Completed [facility] Routine Lab 04/18/17 12:24 Completed Provider Date of admission: 04/14/17 19:28 Primary care physician: PCP NONE Consults: 04/16/17 08:48 Consult to Pastoral Services [CONS] Routine Comment: Assessment and Plan - Patient/Caregiver Discharge Instructions Activity: resume usual activities as tolerated Diet: regular diet Additional Instructions: Patient is going to talk to his parents and find out if other family members have a history of bipolar disorder. He has partial insight into this, but is not convinced. I discussed with him the importance of medication compliance and follow up with Mental Health once he is discharged. - Follow up Plan Follow up with: [facility] [Outside] - 04/22/17 9:00 am (The above appointment is with Kymberly Voss, for mental health counseling services. Please arrive 10 minutes early to complete the check-in process. Please bring your insurance card and photo ID. If you are unable to keep this appointment, 24 hour business notice of cancellation is expected. If you miss your new patient appointment without providing appropriate notice, you cannot be re-scheduled. The above appointment(s) reflects first availability. You may contact the office regularly to check for cancellations that may allow you to be seen sooner. The [facility] is the 1st building behind [facility] in [place], [place]. Please do not use GPS or mapping apps to locate the office, as they will take you to the wrong location. ) [facility] [Outside] - 05/17/17 10:00 am (The above appointment is with Dr. Noni Page, for mental health counseling services. You will also see , for outpatient psychiatric assessment and medication management services on. Please arrive 10 minutes early to complete the check- in process. Please bring your insurance card (or [employer] award letter) and photo ID. If you are unable to keep this appointment, 24 hour business notice of cancellation is expected. If you miss your new patient appointment without providing appropriate notice, you cannot be re-scheduled. The above appointment (s) reflects first availability. You may contact the office regularly to check for cancellations that may allow you to be seen sooner. The [facility] is the 1st building behind [facility] in [place], [place]. Please do not use GPS or mapping apps to locate the office, as they will take you to the wrong location. ) Disposition: Home, Self-Care Hospital Course Hospital course: Mr. Sanchez is a 21 year old male who was admitted to after being evaluated in the emergency room with new onset mental health issues. He presented initially on the unit as manic with profound sleep disturbance and disorganized thought. He had marijuana in his urine drug screen but nothing else. He was evaluated and started on low-dose lithium as well as a low-dose Risperdal. This was being used to target his mood/sonny as well as psychotic thought. He tolerated the medications well and the Risperdal was increased to 2 mg PO BID. He improved greatly in his sleep. He was attending groups on the unit as well as talking to social worker delinquency prevention individually. When I spoke to him about his medications he was sleeping well at night his mood was much less elevated he was thinking much more linear and organized. I spoke to him about the possibility of being diagnosed with bipolar disorder. He did not think he was bipolar and thought he was mainly just having problems from losing sleep as an ex-girlfriend had been hanging around lately and taking up a lot of his time. He has a handout on bipolar disorder. I asked him also to talk to his mother and father and see if there was a family history of bipolar disorder that he may have genetically be predisposed to it. He was agreeable to doing this. He later told and follow-up that his parents appeared to have mental health issues on both sides of the family and after reading the material on bipolar disorder he understood and agreed that he does have a diagnosis of bipolar. He denied any adverse side effects of his medications. He has lithium level drawn the point for the current dose of medication is taking and had no renal abnormalities in his lab work. Discharge plans are made for follow-up and seeing a counselor as well as for follow-up medication refills. Patient was discharged home on a 30 day supply of lithium 300 mg PO BID #60, Trazodone 50 mg po qHS #30 and Risperdal 2 mg PO BID #60. It was explained to him the possibility that outpatient doctor may be able to modify his medications further simplify and getting him down to only taking lithium and/or Risperdal. After reviewing the risk-benefit side effects of medications he believes that lithium might work well for him and that the potential side effect profile the Risperdal was something he was concerned about. He stated he would talk to his outpatient psychiatrist about it and see about maximizing the dose of lithium and decreasing or tapering off the dose of Risperdal. He denied any auditory visual hallucinations she denied any suicidal or homicidal ideation's. His mental health is stable and he was excited to go home. He contracted for safety as well as compliance with his medications to follow-up with his outpatient psychiatrist. Time spent discussing smoking cessation with patient: 3 to 10 minutes Does patient wish to continue nicotine replacement upon disc: No - Time Spent with Patient Total time spent providing and/or coordinating discharge services: 25 min Less than 30 minutes Quality - Multiple Antipsychotics Patient discharged on 2 or more antipsychotic medications: No Procedures - Procedures Procedures: Medication Management, Crisis Stabilization, Supportive Therapy Mental Status Exam - Mental Status Exam Patient orientation: Yes Person, Yes Time, Yes Place, Yes Circumstance Level of alertness: Alert Patient appearance: Appropriate, Well Groomed, Well-nourished Behavior: calm, cooperative Psychomotor activity: Normal Eye contact: Maintains Eye Contact Mood description: Euthymic/stable Affect description: congruent with mood Speech pattern: Normal rate, Normal rhythm, Normal tone Speech Volume: Normal Thought process: Intact, Linear Thought Content: Yes Intact Judgment: Good Insight: Full
[2017-04-21 11:46] VITALS: BP 131/75
[2017-04-21] MEDS ORDERED: FLUBLOK QUAD 17/18 (18YR UP)/PF 0.5 ML SYRINGE IM ONE (12:10)
[2017-04-21] MEDS ORDERED: FLUARIX QUAD 2017-18 36MOS UP/PF 0.5 ML SYRINGE IM ONE (13:06)
== END 2017-04-21 15:00 | disposition home or self-care (01) | DRG 885 ==
LOC: EMEROO 15:21 → 1ANU 19:28
PROVIDERS: ADMIT Psychiatry & Neurology Psychiatry; ATTEND Psychiatry & Neurology Psychiatry